=== PATIENT | male | born 1995 | race Caucasian/White ===

== ENCOUNTER 2017-11-08 00:47 | Emergency (ER) | payer OTHER ==
[~2017-11-08] VITALS: Ht 170.2 cm; Wt 86.4 kg
[2017-11-08 00:50] VITALS: BP 137/91
[2017-11-08] MEDS ORDERED: SLEE1TAB PO (00:55)
== END 2017-11-08 01:37 | disposition home or self-care (01) ==
LOC: M ED 00:47
DX: F43.21 Adjustment disorder with depressed mood (principal); F17.200 Nicotine dependence, unspecified, uncomplicated

== ENCOUNTER 2018-06-23 00:32 | Emergency (ER) | payer OTHER, MEDICAID ==
[2018-06-23] MEDS: TETRACAINE 0.5% OPHTH SOLN 4ML OD (01:19)
[2018-06-23] MEDS: LISSAMINE GREEN OPHTH 1.5 MG STRIP OD (01:19)
== END 2018-06-23 01:54 | disposition home or self-care (01) ==
LOC: M ED 00:32
DX: H57.9 Unspecified disorder of eye and adnexa (principal); F17.210 Nicotine dependence, cigarettes, uncomplicated
CPT/HCPCS: 99283

== ENCOUNTER → 2018-08-13 | Outpatient (REF) | payer OTHER ==
[2018-08-13 17:53] LABS: ALBUMIN 4.3 GM/DL (3.2-5.2); ALBUMIN/GLOBULIN RATIO 1.39 (1.00-1.93); ALKALINE PHOSPHATASE 82 U/L (45-117); ALT/SGPT 56 U/L (12-78); ANION GAP 8 MEQ/L (8-16); AST/SGOT 33 U/L (7-37); BILIRUBIN,TOTAL 0.3 MG/DL (0.2-1.0); BLOOD UREA NITROGEN 17 MG/DL (7-18); CALCIUM LEVEL 9.3 MG/DL (8.5-10.1); CARBON DIOXIDE LEVEL 28 MEQ/L (21-32); CHLORIDE LEVEL 106 MEQ/L (98-107); CHOLESTEROL LEVEL 170 MG/DL (<200); CREATININE FOR GFR 1.04 MG/DL (0.70-1.30); GLOMERULAR FILTRATION RATE > 60.0 (>60); GLUCOSE, FASTING 85 MG/DL (70-100); HDL CHOLESTEROL 40 MG/DL (>40); LDL CHOLESTEROL 104 MG/DL (<100); NON-HDL-C 130 MG/DL; POTASSIUM SERUM 4.3 MEQ/L (3.5-5.1); SODIUM LEVEL 142 MEQ/L (136-145); THYROID STIMULATING HORMONE 0.985 uIU/ML (0.358-3.740); TOTAL 25(OH) VITAMIN D 27.8 NG/ML (30.0-100.0); TOTAL PROTEIN 7.4 GM/DL (6.4-8.2); TRIGLYCERIDES LEVEL 132 MG/DL (<150)
[2018-08-13 19:34] LABS: BASO # 0.1 10^3/uL (0.0-0.2); BASO % 0.8 % (0.0-1.0); EOS # 0.8 10^3/uL (0.0-0.50); EOS % 8.3 % (0.0-3.0); HEMATOCRIT 48.7 % (42.0-52.0); HEMOGLOBIN 16.4 g/dl (13.5-17.5); IMMATURE GRANULOCYTE % 0.6 % (0-3.0); LYMPH # 3.4 10^3/uL (1.5-6.5); LYMPH % 35.6 % (24.0-44.0); MEAN CORPUSCULAR HEMOGLOBIN 30.9 pg (27.0-33.0); MEAN CORPUSCULAR HGB CONC 33.7 g/dl (32.0-36.5); MEAN CORPUSCULAR VOLUME 91.9 fl (80.0-96.0); MONO # 0.7 10^3/uL (0.0-0.8); MONO % 6.8 % (0.0-5.0); NEUTROPHILS # 4.6 10^3/uL (1.8-7.7); NEUTROPHILS % 47.9 % (36.0-66.0); PLATELET COUNT, AUTOMATED 325 10^3/uL (150-450); WHITE BLOOD COUNT 9.6 10^3/uL (4.0-10.0)
== END ==
LOC: M SFHCCAPE 07:01
DX: F41.8 Other specified anxiety disorders (principal); E66.09 Other obesity due to excess calories; Z68.33 Body mass index [BMI] 33.0-33.9, adult
CPT/HCPCS: 84443

== ENCOUNTER 2019-08-21 22:45 | Inpatient (IN) | payer OTHER, SELFPAY ==
[~2019-08-21] VITALS: Ht 172.7 cm; Wt 76.4 kg
[~2019-08-21 22:45] MED LIST: AMOX500C PO; CHERSYP3 PO; SLEE1TAB PO; TESS100C PO
[2019-08-21 23:11] LABS: BASO # 0.1 10^3/uL (0.0-0.2); BASO % 0.6 % (0.0-1.0); EOS # 0.8 10^3/uL (0.0-0.5); EOS % 7.3 % (0.0-3.0); HEMATOCRIT 39.7 % (42.0-52.0); HEMOGLOBIN 13.6 g/dl (13.5-17.5); LYMPH # 3.2 10^3/uL (1.5-5.0); LYMPH % 28.7 % (24.0-44.0); MEAN CORPUSCULAR HEMOGLOBIN 30.4 pg (27.0-33.0); MEAN CORPUSCULAR HGB CONC 34.3 g/dl (32.0-36.5); MEAN CORPUSCULAR VOLUME 88.8 fl (80.0-96.0); MONO # 0.8 10^3/uL (0.0-0.8); MONO % 7.3 % (0.0-5.0); NEUTROPHILS # 6.3 10^3/uL (1.5-8.5); NEUTROPHILS % 55.8 % (36.0-66.0); PLATELET COUNT, AUTOMATED 310 10^3/uL (150-450); RED BLOOD COUNT 4.47 10^6/uL (4.30-6.10); WHITE BLOOD COUNT 11.3 10^3/uL (4.0-10.0)
[2019-08-21] MEDS ORDERED: NS 1,000 ML IV ONE (23:15)
[2019-08-21 23:46] LABS: ACETAMINOPHEN LEVEL < 2.0 UG/ML (10.0-30.0); ALBUMIN 3.6 GM/DL (3.2-5.2); ALT/SGPT 23 U/L (12-78); BILIRUBIN,DIRECT 0.1 MG/DL (0.0-0.2); BILIRUBIN,TOTAL 0.5 MG/DL (0.2-1.0); BLOOD UREA NITROGEN 13 MG/DL (7-18); CALCIUM LEVEL 8.6 MG/DL (8.5-10.1); CARBON DIOXIDE LEVEL 27 MEQ/L (21-32); CHLORIDE LEVEL 107 MEQ/L (98-107); CPK CREATINE PHOSPHOKINASE 1381 U/L (39-308); CREATININE FOR GFR 1.04 MG/DL (0.70-1.30); ETHYL ALCOHOL (ETHANOL) < 0.003 % (0.000-0.010); GLOMERULAR FILTRATION RATE > 60.0 (>60); GLUCOSE, FASTING 86 MG/DL (70-100); POTASSIUM SERUM 3.6 MEQ/L (3.5-5.1); SALICYLATE LEVEL 2.4 MG/DL (5.0-30.0); SODIUM LEVEL 142 MEQ/L (136-145); THYROID STIMULATING HORMONE 0.893 uIU/ML (0.358-3.740); TOTAL PROTEIN 6.3 GM/DL (6.4-8.2)
[2019-08-22] MEDS ORDERED: NICOTINE 21MG/24HR 1 EA TRANSDERMAL TD ONE ×2 (00:45→13:45)
[2019-08-22 00:57] LABS: AMPHETAMINES LEVEL URINE NEGATIVE (NEGATIVE); BARBITURATES URINE NEGATIVE (NEGATIVE); BENZODIAZEPINES URINE NEGATIVE (NEGATIVE); CANNABINOIDS URINE NEGATIVE (NEGATIVE); COCAINE METABOLITE URINE POSITIVE (NEGATIVE); METHADONE URINE NEGATIVE (NEGATIVE); OPIATES URINE POSITIVE (NEGATIVE); PHENCYCLIDINE URINE NEGATIVE (NEGATIVE)
--- NOTE | 2019-08-22 13:30 | ECGEPIP ---
[facility] - ED Test Date: 2019-08-21 Pat Name: ROSETTA WELLS Department: Room: - Gender: Male Solution Director: : 1995 Requested By: TRAY Boles Order Number: [id number] Reading MD: Radha Gray Measurements Intervals [place] Rate: 66 P: 42 ND: 122 QRS: 66 QRSD: 89 T: 57 QT: 404 QTc: 425 Interpretive Statements SINUS RHYTHM WITH SINUS ARRHYTHMIA No prior Electronically Signed on 08-22-2019 13:30:27 EDT by Radha Gray
[2019-08-22] MEDS ORDERED: ACETAMINOPHEN TAB 650MG DOSE (2X325MG) PO ONE (13:45)
[2019-08-22] MEDS ORDERED: ALBUTEROL 90 MCG/ACT 8GM HFA INHALER INH ONE (16:45)
[2019-08-23] MEDS ORDERED: ONDANSETRON 4 MG TAB (S0181) PO ONE (09:00)
[2019-08-23] MEDS ORDERED: cloNIDine 0.1 MG TAB PO PRN (13:30)
[2019-08-23] MEDS ORDERED: ACETAMINOPHEN TAB 650MG DOSE (2X325MG) PO PRN (13:30)
[2019-08-23] MEDS ORDERED: MAALOX 30 ML SUSP *UDC PO PRN (13:30)
[2019-08-23] MEDS ORDERED: MOM 30ML SUSPENSION UDC PO PRN (13:30)
[2019-08-23] MEDS ORDERED: DICYCLOMINE 10 MG CAP PO PRN (13:30)
[2019-08-23] MEDS ORDERED: NICOTINE 21MG/24HR 1 EA TRANSDERMAL TD ONE (18:45)
[2019-08-24 06:22] VITALS: BP 122/83
[2019-08-24] MEDS ORDERED: VARENICLINE 0.5 MG TABLET PO SCH (09:00)
[2019-08-24] MEDS: NICOTINE 21MG/24HR 1 EA TRANSDERMAL TD SCH (09:09)
--- NOTE | 2019-08-24 09:27 | MHHPEPDOC ---
[facility] History & Physical History and Physical Date of Service: 08/24/2019 Chief Complaint "I just really want help." History of Present Illness The patient a 23-year-old man with a history of depression and heroin use presents after reportedly relapsing on heroin use in which he snorts heroin. He reports that he had had suicidal thoughts of overdosing in the context of psychosocial stressors. When the patient was met with, he describes that he has a history of depression with low mood, loss of interest, fatigue, concentration problems, especially around when his relapse in which his guilt increases as well related to his relapse. He describes that he currently works and has been trying to take care of himself so that he and his might get custody of their children again. He reports being open to treatment and describes that he misses his family dearly. He describes that he has not had a significant family history of trauma, is unclear as to where his symptoms come from. The patient reports that he was in the , but was discharged without benefits due to drug use namely the aforementioned heroin. Review Of Systems Depression: As above. Anxiety: The patient denies any excessive worry associated with physical s ymptoms. They deny any experience of discreet panic in the past. Xiomara: The patient denies any episodes of euphoria/dysphoria associated with decreased need for sleep, hedonism, talkatively or impulsivity lasting longer than 5 days. Psychotic: The patient denies any experiences of auditory or visual hallucinations. They deny any episodes of paranoia or delusional thinking in the past Trauma: The patient denies any traumatic events associated with nightmares or intrusive thoughts. Borderline: The patient screens negative for borderline personality at this junction. Past Psychiatric History The patient reports no history of psychiatric admissions or current follow up. Patient reports being tried on Wellbutrin in the past and sertraline in the , but is unclear as to the effects. Allergies Please see below. Family Psychiatric History The patient denies/is unaware any history of mental health history including addictions and suicide. Social History The patient currently lives in local area, is to his of three years, has two stepsons ages 5 and 9 who currently live with them by his report. He is currently employed as an senior wind turbine technician, has complete technical school, works in [employer]. Describes having a DUI in 2016, but no other legal problems. He reports that he was adopted as a child. He has one older adoptive brother, but reports that his mother and father (adopted) are very supportive. He reports his also suffers from addiction and had an overdose in 2017 with prescription pills. 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 Substance Abuse History The patient reports tobacco use roughly a pack a day, reports heroin use that he has been sober from for several months, but has not injected but snorts. He denies any other illicit drug use. Denies excessive alcohol use. Reports doing rehab in 2016 in the . Medical History Reports a history of restless leg syndrome and insomnia. Mental Status Examination General: Well dressed with good hygiene Speech: Spontaneous and fluid Thought processes: Linear and logical MSK: Smooth and coordinated gait, no signs of tremors or involuntary orofacial movements Thought content: Future orientated Abstract reasoning, and computation: Intact Description of associations: Intact Description of abnormal or psychotic thoughts: Denies any suicidal or homicidal ideation. Denies any auditory or visual hallucinations. Does not appear to be responding to internal stimuli. Does not appear to be endorsing any bizarre or paranoid ideation. Judgment: fair Insight: fair Orientation: Alert and orientated 3 Cognition: Grossly normal Recent and remote memory: Intact Attention span and concentration: Intact Fund of knowledge: Adequate Mood: "okay" Affect: Anxious with a constricted range. Diagnoses Unspecified depressive disorder. Rule out substance-induced. Opioid use disorder, severe. Tobacco use disorder, severe. Assessment and Plan Unspecified depressive disorder: Try Wellbutrin 150 mg daily. Discussed risk, benefits and potential side effects as well as augmentation with pramipexole 0.125 mg nightly. Additionally discussed the risk, benefits, and potential side effects of this as well. Due to history of restless leg syndrome now, the patient had some akathisia after the first dose of Wellbutrin and thus this was discontinued with one dose of Ativan. Opioid use disorder: Buprenorphine detox one dose given with referral to dual diagnosis program in [place]. Gave patient information to call. Patient called and will be able to get an appointment on prospective discharge. Tobacco use: Discussed use of Chantix, discontinued as patient did have akathisia from Wellbutrin. Will provide nicotine replacement. Disposition Discharge , however, will need further inpatient admission in order to identify a safe discharge plan and detoxing from opioids. Problem List 1. Substance use. 2. Risk for suicide. 3. Depression. Initial Treatment Plan 1. Patient was admitted on a 9.39 legal status. 2. Complete history was obtained. 3. With patients permission, family will be contacted and database will be expanded. 4. Patients medication regimen will be reviewed and changed accordingly. 5. Patient will be provided with protected environment. 6. Patient will be treated with individual, group, and milieu therapies. 7. Patient will receive supportive psych-education. 8. Discharge planning will commence immediately. 9. Outpatient follow-up treatment will be strongly recommended. 10. The initial treatment plan will focus initially on: Estimated Length Of Stay 3 days with being estimated discharge date. Time Spent 45 minutes. Friday Vital Signs Vital Signs Date Time Temp Pulse Resp B/P (MAP) Pulse Ox O2 Delivery O2 Flow Rate FiO2 08/24/19 08:40 Room Air 08/24/19 06:22 98.5 62 16 122/83 (96) 08/23/19 13:28 97 Medications No Active Prescriptions or Reported Meds Allergies Coded Allergies: No Known Allergies (Unverified , 08/21/19) PRISCILA DENNIS DO Aug 24, 2019 09:26
--- NOTE | 2019-08-24 10:40 | HPEPDOC ---
General Date of Admission Aug 23, 2019 at 13:23 Date of Service: Aug 24, 2019 Chief Complaint The patient is a 23-year-old male admitted with a reason for visit of Unspecified Depression. Source: Patient, Old records Exam Limitations: No limitations History of Present Illness Mr. Marie is a 23 years old man admitted to [facility] for depression. He reports feeling rest leg syndrome, but otherwise denies any other problems. Complete ROS is negative. Vitals are normal. Labs are fine except for elevated CK level 1381 which is down to 874 on repeat test. Home Medications No Active Prescriptions or Reported Meds Allergies Coded Allergies: No Known Allergies (Unverified , 08/21/19) Past Medical History Medical History none Surgical History none Social History * Smoker: Denies Alcohol: Denies Drugs: cocaine A-FIB/CHADSVASC A-FIB History Current/History of A-Fib/PAF?: No Physical Examination General Exam: Positive: Alert, Cooperative, No Acute Distress Eye Exam: Positive: PERRLA, Conjunctiva & lids normal ENT Exam: Positive: Atraumatic, Mucous membr. moist/pink Neck Exam: Positive: Supple; Negative: JVD Chest Exam: Positive: Clear to auscultation, Normal air movement Heart Exam: Positive: Rate Normal, Normal S1, Normal S2; Negative: Murmurs Abdomen Exam: Positive: Normal bowel sounds, Soft, Tenderness Extremity Exam: Positive: Normal pulses; Negative: Edema Skin Exam: Positive: Nl turgor and temperature, Rash Neuro Exam: Positive: Normal Gait, Normal Speech Psych Exam: Positive: Mental status NL, Mood NL Vital Signs Vital Signs Date Time Temp Pulse Resp B/P (MAP) Pulse Ox O2 Delivery O2 Flow Rate FiO2 08/24/19 08:40 Room Air 08/24/19 06:22 98.5 62 16 122/83 (96) 08/23/19 13:28 97 Assessment/Plan Mild Rhabdomyolysis - Encourage oral fluid - Repeat CK tomorrow Plan / VTE VTE Prophylaxis Ordered?: No VTE Exclusion Mechanical Proph: Low Risk for VTE VTE Exclusion Pharmacological: At Low Risk for VTE WILLIAN OLIVEROS MD Aug 24, 2019 10:40
[2019-08-24] MEDS ORDERED: buPROPion **XL** TABLET 150MG (WELLBUTRIN XL) PO ONE (15:00)
[2019-08-24] MEDS ORDERED: BUPRENORPHINE/NALOXONE 8-2MG SUBLINGUAL TABLET(SUBOXONE) SL ONE (15:00)
[2019-08-24 16:06] VITALS: BP 125/74
[2019-08-24] MEDS ORDERED: LORazepam 0.5 MG TAB PO ONE (16:45)
[2019-08-24] MEDS: traZODone 50 MG TAB PO PRN (20:03)
[2019-08-24] MEDS ORDERED: PRAMIPEXOLE (MIRAPEX) 0.125 MG TAB PO SCH (21:00)
[2019-08-25 06:00] VITALS: BP 111/69
[2019-08-25] MEDS: NICOTINE 21MG/24HR 1 EA TRANSDERMAL TD SCH (08:43)
[2019-08-25] MEDS ORDERED: buPROPion **XL** TABLET 150MG (WELLBUTRIN XL) PO SCH (09:00)
--- NOTE | 2019-08-25 10:01 | MHIPNPDOC ---
[facility] Progress Note Progress Note Date of Service: 08/25/2019 History of Present Illness The patient is a 23-year-old man with a history of depression and heroin use presents after reportedly relapsing on heroin use in which he snorts heroin. He reports that he had had suicidal thoughts of overdosing in the context of psychosocial stressors. When the patient was met with, he describes that he has a history of depression with low mood, loss of interest, fatigue, concentration problems, especially around when his relapse in which his guilt increases as well related to his relapse. He describes that he currently works and has been trying to take care of himself so that he and his might get custody of their children again. He reports being open to treatment and describes that he misses his family dearly. He describes that he has not had a significant family history of trauma, is unclear as to where his symptoms come from. The patient reports that he was in the , but was discharged without benefits due to drug use namely the aforementioned heroin. Interval History The patient is met with today. He reports that the Wellbutrin side effect of akathisia has gone away and the Ativan was quite helpful. He does report he still has some heroin with lots of achy muscles and chills at times. He reports that the buprenorphine advancement is really helpful for him. He reports that he did not take the pramipexole as he was concerned about adding too much medications. He is looking forward to discharge tomorrow. No major behavioral problems. He reports his depression is improved, his energy, motivation and ability to attend to his needs has also improved. He reports some psychosocial stressors in the form of talking to his about some infidelities that he had engaged with when he was using but otherwise he describes that he is coping quite well and that his is supportive. Review Of Systems General: Denies any fever or appetite changes Cardiovascular: Denies chest pain or palpitations GI: Denies Nausea, vomiting, or bowel changes Respiratory: Denies shortness of breath or cough Neuro: Denies dizziness, tremors Derm: Denies any rashes or pruritus : Denies any dysuria or sexual dysfunction MSK: Denies any muscle tightness or stiffness HEENT: Denies any headaches or sinus problems. Psychotherapy None on this visit. Vital Signs Reviewed. Mental Status Examination General: Well dressed with good hygiene Speech: Spontaneous and fluid Thought processes: Linear and logical MSK: Smooth and coordinated gait, no signs of tremors or involuntary orofacial movements Thought content: Future orientated Abstract reasoning, and computation: Intact Description of associations: Intact Description of abnormal or psychotic thoughts: Denies any suicidal or homicidal ideation. Denies any auditory or visual hallucinations. Does not appear to be responding to internal stimuli. Does not appear to be endorsing any bizarre or paranoid ideation. Judgment: fair Insight: fair Orientation: Alert and orientated 3 Cognition: Grossly normal Recent and remote memory: Intact Attention span and concentration: Intact Fund of knowledge: Adequate Mood: "okay" Affect: Euthymic with a full range Diagnoses Unspecified depressive disorder. Rule out substance-induced. Opioid use disorder, severe. Tobacco use disorder, severe. Stimulant use disorder, severe. Assessment and Plan Unspecified depressive disorder: Patient doing well without medications like the substance induced. We will refer to outpatient. Opioid use disorder: Additional dose of buprenorphine at half a tablet of 8 mg. Tobacco use: We will give nicotine replacement and nicotine replacement on discharge as well as referral to addiction. Disposition Discharge tomorrow. Time Spent 25 minutes [id number]. Friday Vital Signs Vital Signs Date Time Temp Pulse Resp B/P (MAP) Pulse Ox O2 Delivery O2 Flow Rate FiO2 08/25/19 09:48 Room Air 08/25/19 06:00 97.7 86 12 111/69 (83) 08/23/19 13:28 97 Laboratory Data 24H Labs Laboratory Tests 2 08/25/19 08:03: Current Medications Current Medications Medications (Trade) Dose Ordered Sig/Patt Route PRN Reason Start Time Stop Time Status Last Admin Dose Admin Acetaminophen (Tylenol Tab) 650 mg Q6HP PRN PO HEADACHE or DISCOMFORT 08/23/19 13:30 Al Hydrox/Mg Hydrox/Simethicone (Mylanta) 30 ml Q4HP PRN PO HEARTBURN/INDIGESTION 08/23/19 13:30 Bupropion HCl (Wellbutrin Xl) 150 mg DAILY PO 08/25/19 09:00 08/25/19 09:00 DC Clonidine HCl (Catapres) 0.05 mg TIDP PRN PO WITHDRAWAL SYMPTOMS 08/23/19 13:30 Dicyclomine HCl (Bentyl) 10 mg DAILY PRN PO WITHDRAWAL SYMPTOMS 08/23/19 13:30 Home Med (Med Rec Complete!) ASDIRECTED XX 08/22/19 09:00 08/22/19 09:00 DC Magnesium Hydroxide (Milk Of Magnesia) 30 ml DAILYPRN PRN PO CONSTIPATION 08/23/19 13:30 Nicotine (Nicoderm Cq 21mg) 1 patch DAILY TD 08/24/19 09:00 08/25/19 08:43 Pramipexole Dihydrochloride (Mirapex) 0.125 mg QHS PO 08/24/19 21:00 Trazodone HCl (Desyrel) 50 mg QHSP PRN PO INSOMNIA 08/23/19 13:30 08/24/19 20:03 Varenicline (Chantix) 0.5 mg DAILY PO 08/24/19 09:00 08/24/19 16:41 DC Allergies Coded Allergies: No Known Allergies (Unverified , 08/21/19) PRISCILA DENNIS DO Aug 25, 2019 10:01
[2019-08-25] MEDS ORDERED: BUPRENORPHINE/NALOXONE 8-2MG SUBLINGUAL TABLET(SUBOXONE) SL ONE (12:30)
[2019-08-25] MEDS ORDERED: NICO21PAT TD (14:27)
[2019-08-25] MEDS ORDERED: CLONI1TA PO (14:27)
[2019-08-25] MEDS ORDERED: DICY1CAP8 PO (14:27)
[2019-08-25 15:32] VITALS: BP 137/84
[2019-08-25] MEDS: traZODone 50 MG TAB PO PRN (20:28)
[2019-08-26 06:29] VITALS: BP 150/86
--- NOTE | 2019-08-26 08:20 | MHDSPDOC ---
[facility] Discharge Summary Discharge Summary DATE OF ADMISSION: Aug 23, 2019 at 13:23 DATE OF DISCHARGE: 08/26/19 Discharge Gilles Marie MRN: N/A Date of : N/A Date of Service: 08/26/2019 Diagnoses Unspecified depressive disorder. Rule out substance-induced. Opioid use disorder, severe. Tobacco use disorder, severe. Stimulant use disorder, severe. History of Present Illness The patient is a 23-year-old man with a history of depression and heroin use presents after reportedly relapsing on heroin use in which he snorts heroin. He reports that he had had suicidal thoughts of overdosing in the context of psychosocial stressors. When the patient was met with, he describes that he has a history of depression with low mood, loss of interest, fatigue, concentration problems, especially around when his relapse in which his guilt increases as well related to his relapse. He describes that he currently works and has been trying to take care of himself so that he and his might get custody of their children again. He reports being open to treatment and describes that he misses his family dearly. He describes that he has not had a significant family history of trauma, is unclear as to where his symptoms come from. The patient reports that he was in the , but was discharged without benefits due to drug use namely the aforementioned heroin. Consultants Involved Hospitalist/PCP screening Treatment and Progress On The Unit The patient was admitted to the unit and subsequently tried on Wellbutrin with negative akathisia side effect noted. He declined the pramipexole as he was concerned about the side effect. Buprenorphine detox with 2 doses was started with positive effects and the patient improving spontaneously with the detox likely indicating the patient's mood problem was secondary to substance abuse versus adjustment rather than underlying major depressive disorder. However, he does give information that suggests he could have an underlying anxiety or depressive disorder that could be active prior to his relapses. He requested to go and on day of discharge, he no longer meets involuntary criteria as he declines any suicidal or homicidal ideation and is able to attend to his needs. He declines further voluntary admission and was discharged in good [place] with follow up with addiction. Recommended to follow up for his as well as she additionally has difficulties with addiction. CPS was contacted, but report was not taken. Discharge Assessment 23-year-old man with a history of severe depression and heroin use that presents with suicidal thoughts after relapsing on heroin. Mental Status Examination General: Well dressed with good hygiene Speech: Spontaneous and fluid Thought processes: Linear and logical MSK: Smooth and coordinated gait, no signs of tremors or involuntary orofacial movements Thought content: Future orientated Abstract reasoning, and computation: Intact Description of associations: Intact Description of abnormal or psychotic thoughts: Denies any suicidal or homicidal ideation. Denies any auditory or visual hallucinations. Does not appear to be responding to internal stimuli. Does not appear to be endorsing any bizarre or paranoid ideation. Judgment: fair Insight: fair Orientation: Alert and orientated 3 Cognition: Grossly normal Recent and remote memory: Intact Attention span and concentration: Intact Fund of knowledge: Adequate Mood: "okay" Affect: Euthymic with a full range Follow Up The social work team worked during the predischarge meeting in order to evaluate for further issues of lethality address them fully before discharge. They worked on safety planning with the patient's family members in order to ensure that the patient will have a safe and effective discharge. Time Spent The amount of time spent in the coordination of care for this patient was approximately 20 minutes. Vital Signs/I&Os Vital Signs Date Time Temp Pulse Resp B/P (MAP) Pulse Ox O2 Delivery O2 Flow Rate FiO2 08/26/19 06:29 99.0 86 18 150/86 (107) 08/25/19 09:48 Room Air 08/23/19 13:28 97 Medications Scheduled Nicotine (Nicotine Patch) 21 Mg Patch.td24, 1 PATCH TD DAILY for tobacco for 30 Days, #30 Scheduled PRN Clonidine Hcl (Clonidine HCl) 0.1 Mg Tablet, 0.05 MG PO TIDP PRN for WITHDRAWAL SYMPTOMS for 7 Days, #21 Dicyclomine HCl (Dicyclomine HCl) 10 Mg Capsule, 10 MG PO DAILY PRN for W ITHDRAWAL SYMPTOMS for 7 Days, #7 Allergies Coded Allergies: No Known Allergies (Unverified , 08/21/19) PRISCILA DENNIS DO Aug 26, 2019 08:20
[2019-08-26] MEDS: NICOTINE 21MG/24HR 1 EA TRANSDERMAL TD SCH (09:00)
[2019-08-28 00:06] LABS: CK 1 (BB) 0 % (0); CK 2 (MB) 0 % (0-3); CK 3 (MM) 100 % (97-100); CK MACRO I PERCENT 0 % (Not Observed); CK MACRO II PERCENT 0 % (Not Observed); CK TOTAL 134 U/L (24-204)
== END 2019-08-26 11:00 | disposition home or self-care (01) | DRG 754 ==
LOC: M ED 22:45 → M ED INP 08-23 13:23 → M PSY 08-23 14:25
PROVIDERS: ADMIT Psychiatry & Neurology Addiction Medicine; ATTEND Psychiatry & Neurology Addiction Medicine
DX: F32.9 Major depressive disorder, single episode, unspecified (principal); F11.20 Opioid dependence, uncomplicated; F17.200 Nicotine dependence, unspecified, uncomplicated; F15.20 Other stimulant dependence, uncomplicated

== ENCOUNTER 2019-08-31 04:08 | Emergency (ER) | payer SELFPAY ==
[~2019-08-31] VITALS: Ht 170.2 cm; Wt 75.5 kg
[~2019-08-31 04:08] MED LIST changes: +CLONI1TA PO; +DICY1CAP8 PO; +NICO21PAT TD
[2019-08-31 04:11] VITALS: BP 124/90
== END 2019-08-31 04:59 | disposition home or self-care (01) ==
LOC: M ED 04:08
DX: Z73.4 Inadequate social skills, not elsewhere classified (principal); F60.89 Other specific personality disorders; F19.10 Other psychoactive substance abuse, uncomplicated; F17.200 Nicotine dependence, unspecified, uncomplicated